=== PATIENT | male | born 1980 | race African-American/Black ===

== ENCOUNTER 2023-09-15 15:49 | Inpatient (IN) | payer OTHER ==
[2023-09-15 16:40] VITALS: BMI 28.5
[2023-09-15] MEDS ORDERED: POLYETHYLENE GLYCOL (HEALTHYLAX) 3350 17 GM PACKET PO PRN (18:06)
[2023-09-15] MEDS ORDERED: ONDANSETRON *ODT* 4 MG TABLET SL PRN (18:06)
[2023-09-15] MEDS ORDERED: BISMUTH SUBSALICYLATE 524 MG/30 ML PO PRN (18:06)
[2023-09-15] MEDS ORDERED: MAGNESIUM HYDROX 2400MG/30ML ORAL SUSPENSION 30 ML CUP PO PRN (18:06)
[2023-09-15] MEDS ORDERED: IBUPROFEN 400 MG TABLET (FP) PO PRN (18:06)
[2023-09-15] MEDS ORDERED: LOPERAMIDE HCL 2 MG CAPSULE PO PRN (18:06)
[2023-09-15] MEDS ORDERED: BENZOCAINE/MENTHOL (CHLORASEPTIC ) LOZENGE MM PRN (18:06)
[2023-09-15] MEDS ORDERED: NALOXONE HCL 0.4 MG/ML VIAL IM PRN (18:06)
[2023-09-15] MEDS ORDERED: ACETAMINOPHEN 325 MG TABLET (FP) PO PRN (18:06)
[2023-09-15] MEDS ORDERED: BENZONATATE 200 MG CAPSULE PO PRN (18:06)
[2023-09-15] MEDS ORDERED: NALOXONE HCL (KLOXXADO) 8 MG SPRAY NS PRN (18:06)
[2023-09-15] MEDS ORDERED: IBUPROFEN 600 MG TABLET (FP) PO PRN (18:06)
[2023-09-15] MEDS ORDERED: MAG HYDROX/AL HYDROX/SIMETH 30 ML UNIT-DOSE CUP PO PRN (18:06)
[2023-09-15] MEDS ORDERED: guaiFENesin 600 MG TABLET.ER (FP) PO PRN (18:06)
[2023-09-15] MEDS: hydrOXYzine PAMOATE 25 MG CAPSULE (FP) PO PRN (18:59)
[2023-09-15] MEDS: MELATONIN 5 MG TABLETS PO SCH (22:08)
[2023-09-15] MEDS: THIAMINE 100 MG TABLET PO SCH (22:08)
[2023-09-15] MEDS: METHOCARBAMOL 500 MG TABLET PO PRN (22:08)
[2023-09-15] MEDS: chlordiazePOXIDE HCL 25 MG CAPSULE PO SCH (22:08)
[2023-09-15] MEDS: BUDESONIDE/FORMETEROL FUMARATE 160/4.5 mcg INHALER IH SCH (22:09)
[2023-09-16] MEDS: PRENATAL VITAMINS W/ FOLIC ACID TABLET (FP) PO SCH (10:10)
[2023-09-16] MEDS: amLODIPine BESYLATE 10 MG TABLET (FP) PO SCH (11:02)
[2023-09-16 11:53] LABS: HEMATOCRIT 40.7 % (35.4-49); HEMOGLOBIN 13.3 GM/dL (11.7-16.9); MCHC 32.7 g/dl (32.0-35.9); MEAN CELL VOLUME 97.8 fl (80-96); PLATELET COUNT 189 10^3/uL (134-434); RBC 4.17 M/mm3 (4.00-5.60); RDW 13.3 % (11.9-15.9); WHITE BLOOD COUNT 6.6 K/mm3 (4.0-10.0)
[2023-09-16 11:57] LABS: CHLORIDE 106 mmol/L (98-107); POTASSIUM 3.6 mmol/L (3.5-5.1); SODIUM 139 mmol/L (136-145)
[2023-09-16 12:00] LABS: ALBUMIN 3.6 g/dl (3.4-5.0); ANION GAP 5 mmol/L (4-13); CALCIUM 9.4 mg/dL (8.5-10.1); CO2 28 mmol/L (21-32); GLUCOSE,RANDOM 127 mg/dL (74-106)
[2023-09-16 12:03] LABS: CREATININE 0.9 mg/dL (0.55-1.3); SGOT/AST 111 U/L (15-37); SGPT/ALT 102 U/L (13-61)
[2023-09-16 12:05] LABS: BILIRUBIN,TOTAL 0.9 mg/dL (0.2-1); TOT PROT 6.6 g/dl (6.4-8.2)
[2023-09-16 12:06] LABS: ALK PHOS 71 U/L (45-117)
[2023-09-16] MEDS: NALTREXONE HCL 50 MG TABLET PO SCH (15:57)
[2023-09-17] MEDS: chlordiazePOXIDE HCL 25 MG CAPSULE PO PRN (00:57)
[2023-09-17] MEDS: chlordiazePOXIDE HCL 25 MG CAPSULE PO SCH (05:45)
[2023-09-17] MEDS ORDERED: LORazepam 1 MG TABLET PO PRN (10:49)
[2023-09-17] MEDS: LORazepam 2 MG TABLET PO SCH (17:28)
[2023-09-17] MEDS: DICYCLOMINE HCL 10 MG CAPSULE PO PRN (17:31)
[2023-09-18] MEDS ORDERED: chlordiazePOXIDE HCL 10 MG CAPSULE PO PRN
[2023-09-18] MEDS ORDERED: chlordiazePOXIDE HCL 10 MG CAPSULE PO SCH (05:00)
[2023-09-18] MEDS: LORazepam 1 MG TABLET PO SCH (05:44)
[2023-09-19] MEDS ORDERED: chlordiazePOXIDE HCL 10 MG CAPSULE PO SCH (05:00)
[2023-09-19] MEDS: LORazepam 0.5 MG TABLET PO SCH (05:53)
[2023-09-19] MEDS ORDERED: ALBUTEROL SO4 HFA INHALER IH PRN (16:39)
[2023-09-20] MEDS ORDERED: chlordiazePOXIDE HCL 10 MG CAPSULE PO ONE (05:00)
[2023-09-20] MEDS: LORazepam 0.5 MG TABLET PO ONE (05:56)
[2023-09-20 08:59] VITALS: BP 134/77; PULSE 99; RESP 18; TEMP 97.7
== END 2023-09-20 09:48 | disposition home or self-care (01) | DRG 897 ==
LOC: YASAS 15:49 → Y6N 18:35
PROVIDERS: ADMIT Allergy & Immunology; ATTEND Surgery
PROC: HZ2ZZZZ Detoxification Services for Substance Abuse Treatment (ICD-10-PCS; principal; 2023-09-15)
DX: F10.230 Alcohol dependence with withdrawal, uncomplicated (principal); F12.20 Cannabis dependence, uncomplicated; F17.210 Nicotine dependence, cigarettes, uncomplicated; I10 Essential (primary) hypertension; J45.909 Unspecified asthma, uncomplicated; R73.9 Hyperglycemia, unspecified; R74.01 Elevation of levels of liver transaminase levels
CPT/HCPCS: 36415; 80053; 80305; 80307; 82140; 83036; 84450; 85027; 86780; 86803; 93005; 93010